=== PATIENT | female | born 1995 | race Caucasian/White ===

== ENCOUNTER 2019-06-08 19:18 | Emergency (ER) | payer OTHER ==
--- NOTE | 2019-06-08 19:40 | ED ---
Upper Extremity Pain - HPI Summary HPI Summary: Patient complains of swelling and pain to medial right forearm 5 days. Patient states she woke up with pain. Denies trauma. Pain worse with supination and pronation and palpation. Patient sent from urgent care to the ED to rule out blood clot. Patient taking testosterone IM weekly 9 months. Denies history of blood clots, fever, cough, sore throat, CP, SOB, N/V/V abdominal pain, change in urine, change in BM. Medical history is thalassemia minor, anxiety. Denies IV drug use. States she receives testosterone injections in the buttocks. - History of Current Complaint Chief Complaint: EDExtremityUpper Stated Complaint: POSS BLOOD CLOT PER PT Time Seen by Provider: 06/08/19 19:28 Hx Obtained From: Patient Mechanism Of Injury: Unknown Onset/Duration: Started Days Ago Timing: Constant Severity Initially: Moderate Severity Currently: Moderate Pain Location: Forearm Character: Aching Aggravating Factor(s): Internal/External Rotation Alleviating Factor(s): Nothing Associated Signs & Symptoms: Positive: Swelling - Allergies/Home Medications Allergies/Adverse Reactions: Allergies Allergy/AdvReac Type Severity Reaction Status Date / Time amoxicillin Allergy Hives Verified 06/08/19 19:22 shellfish derived Allergy Itching Verified 06/08/19 19:22 Sulfa (Sulfonamide Allergy Unknown Verified 06/08/19 19:22 Antibiotics) Reaction Details Home Medications: Home Medications Testosterone Cypionate (NF) 200 mg IM WEEKLY 06/08/19 [History Confirmed ] Venlafaxine ER (NF) [Effexor ER (NF)] 150 mg PO DAILY 06/08/19 [History Confirmed 06/08/19] PMH/Surg Hx/FS Hx/Imm Hx Endocrine/Hematology History: Denies: Hx Anticoagulant Therapy Cardiovascular History: Denies: Hx Myocardial Infarction History: Denies: Hx Dialysis Sensory History: Denies: Hx Eye Prosthesis Opthamlomology History: Denies: Hx Legally Blind EENT History: Denies: Hx Deafness Neurological History: Denies: Hx Dementia Infectious Disease History: No Infectious Disease History: Denies: Traveled Outside the [place] in Last 30 Days - Family History Known Family History: Positive: Non-Contributory - Social History Alcohol Use: None Substance Use Type: Reports: None Smoking Status (MU): Never Smoked Tobacco Review of Systems Constitutional: Negative Eyes: Negative ENT: Negative Cardiovascular: Negative Respiratory: Negative Gastrointestinal: Negative Genitourinary: Negative Musculoskeletal: Negative Skin: Other Neurological: Negative Psychological: Normal All Other Systems Reviewed And Are Negative: Yes Physical Exam - Summary Physical Exam Summary: Hard mass medial forearm. No erythema, ecchymosis, deformity noted. Tenderness with palpation. PMS intact distally. No evidence of trauma or wounds. Triage Information Reviewed: Yes Vital Signs On Initial Exam: Initial Vitals Temp Pulse Resp BP Pulse Ox 98.4 F 105 16 125/93 99 06/08/19 19:19 06/08/19 19:19 06/08/19 19:19 06/08/19 19:19 06/08/19 19:19 Vital Signs Reviewed: Yes Appearance: Positive: Well-Appearing Skin: Positive: Warm Head/Face: Positive: Normal Head/Face Inspection Eyes: Positive: Normal Neck: Positive: Supple Respiratory/Lung Sounds: Positive: Clear to Auscultation Cardiovascular: Positive: Normal Abdomen Description: Positive: Nontender Musculoskeletal: Positive: Normal Neurological: Positive: Normal Psychiatric: Positive: Normal AVPU Assessment: Alert - [place] Coma Scale Best Eye Response: 4 - Spontaneous Best Motor Response: 6 - Obeys Commands Best Verbal Response: 5 - Oriented Coma Scale Total: 15 Procedures - Sedation Patient Received Moderate/Deep Sedation with Procedure: No Diagnostics - Vital Signs Vital Signs Temp Pulse Resp BP Pulse Ox 06/08/19 19:19 98.4 F 105 16 125/93 99 - Laboratory Result Diagrams: 06/08/19 21:07 06/08/19 21:07 Lab Statement: Any lab studies that have been ordered have been reviewed, and results considered in the medical decision making process. Course/Dx - Course Course Of Treatment: Patient complains of swelling and pain to medial right forearm 5 days. Patient states she woke up with pain. Denies trauma. Pain worse with supination and pronation and palpation. Patient sent from urgent care to the ED to rule out blood clot. Patient taking testosterone IM weekly 9 months. Denies history of blood clots, fever, cough, sore throat, CP, SOB, N/ V/V abdominal pain, change in urine, change in BM. Medical history is thalassemia minor, anxiety. Denies IV drug use. States she receives testosterone injections in the buttocks. Vital signs within normal limits. Labs unremarkable. Ultrasound Negative for DVT, positive for Small Fluid Collection Measuring 0.7 x 0.20.6 Cm in the Forearm. Vital signs within normal limits. Labs unremarkable. Rx for Keflex to cover possible developing abscess. - Diagnoses Provider Diagnoses: Pain and swelling of right forearm Discharge ED - Sign-Out/Discharge Documenting (check all that apply): Patient Departure - Discharge Plan Condition: Stable Disposition: HOME Prescriptions: Cephalexin CAP* [Keflex CAP*] 500 mg PO QID 7 Days #28 cap Patient Education Materials: Arm Pain (ED) Referrals: No Primary Care Phys,NOPCP [Primary Care Provider] - Additional Instructions: Take antibiotics as directed. Alternate ibuprofen 600 mg with Tylenol 650 mg every 3 hours for pain. Return to the ED for any worsening symptoms. - Billing Disposition and Condition Condition: STABLE Disposition: Home - Attestation Statements Provider Attestation: I was available for consultation for this patient. I did not evaluate the patient or participate in any medical decision making or disposition decisions unless I am specifically named in the chart as having consulted on the patient. If I have consulted on the patient, please see my own ED note on the patient encounter. Robbie Morrow MD
[2019-06-08 21:20] LABS: ABS Basophils 0.1 10^3/ul (0-0.2); ABS Eosinophils 0.1 10^3/ul (0-0.6); ABS Lymphocytes 3.4 10^3/ul (1.0-4.8); ABS Monocytes 0.6 10^3/ul (0-0.8); ABS Neutrophils 4.7 10^3/ul (1.5-7.7); Eosinophil % 1.3 %; Hematocrit 42 % (35-47); Hemoglobin 13.1 g/dL (12.0-16.0); Lymphocyte % 38.4 %; Mean Corpuscular HGB Conc 32 g/dL (31-36); Mean Corpuscular Hemoglobin 19 pg (27-31); Mean Corpuscular Volume 61 fL (80-97); Mean Platelet Volume 8.6 fL (7.4-10.4); Platelet Count 254 10^3/uL (150-450); Red Blood Count 6.79 10^6 /uL (3.70-4.87); Red Cell Distribution Width 17 % (10-15); White Blood Count 8.8 10^3/uL (3.5-10.8)
[2019-06-08 21:33] LABS: Albumin 4.7 g/dL (3.2-5.2); Albumin/Globulin Ratio 1.6 (1-3); BUN/Creatinine Ratio 12.5 (8-20); C Reactive Protein 1.86 mg/L (<8.01); Calcium 9.8 mg/dL (8.6-10.3); EGFR African American 109.6 (>60); EGFR Non-African American 90.5 (>60); Globulin 2.9 g/dL (2-4); Potassium 3.9 mmol/L (3.5-5.0); Total Bilirubin 0.7 mg/dL (0.2-1.0); Total Protein 7.6 g/dL (6.4-8.9)
[2019-06-08] MEDS ORDERED: Cephalexin CAP* 500 MG PO ONE ×2 (23:10→23:20)
[2019-06-08 23:32] VITALS: BP 0/0
== END 2019-06-08 23:27 | disposition home or self-care (01) ==
LOC: ED 19:18
DX: R60.0 Localized edema (principal); M79.631 Pain in right forearm; Z79.899 Other long term (current) drug therapy; Z88.0 Allergy status to penicillin; F41.9 Anxiety disorder, unspecified
CPT/HCPCS: 36415; 80053; 85025; 85060; 86140; 99282; A9270-GY